=== PATIENT | female | born 1965 | race Caucasian/White ===

== ENCOUNTER 2020-09-21 06:57 | Day surgery (SDC) | payer OTHER, SELFPAY ==
[~2020-09-21] VITALS: Ht 157.5 cm; Wt 62.6 kg
[2020-09-21] MEDS ORDERED: LIDOCAINE 1% 500 MG/50 ML VIAL ONE (09:45)
[2020-09-21] MEDS ORDERED: BUPIVACAINE MPF 0.25% 10 ML VIAL INJ ONE (09:46)
[2020-09-21] MEDS ORDERED: SUGAMMADEX SODIUM 200 MG/2 ML VIAL IV ONE (09:50)
[2020-09-21] MEDS ORDERED: KETOROLAC 30 MG/ML VIAL ONE (09:50)
[2020-09-21] MEDS ORDERED: SUCCINYLCHOLINE CHLORIDE 200 MG/10 ML VIAL IVP ONE ×2 (09:50→09:52)
[2020-09-21] MEDS ORDERED: PROPOFOL 200 MG/20 ML VIAL IV ONE (09:50)
[2020-09-21] MEDS ORDERED: fentaNYL citrate 0.05 MG/ML VIAL ONE (09:50)
[2020-09-21] MEDS ORDERED: ONDANSETRON 4 MG/2 ML VIAL ONE (09:50)
[2020-09-21] MEDS ORDERED: SEVOFLURANE 250 ML BTL INH ONE (09:50)
[2020-09-21] MEDS ORDERED: ROCURONIUM 50 MG/5 ML VIAL IV ONE (09:50)
[2020-09-21] MEDS ORDERED: MIDAZOLAM 2 MG/2 ML VIAL ONE (09:50)
[2020-09-21] MEDS ORDERED: DEXAMETHASONE 4 MG/ML VIAL ONE (09:50)
[2020-09-21] MEDS ORDERED: MEPERIDINE 50 MG/ML SYR ONE (09:50)
[2020-09-21] MEDS ORDERED: diphenhydrAMINE 50 MG/ML VIAL IVP PRN (10:15)
[2020-09-21] MEDS ORDERED: HYDROmorphone 1 MG/ML AMP IVP PRN ×2 (10:15→11:00)
[2020-09-21] MEDS ORDERED: MEPERIDINE 25 MG/ML SYR IVP PRN (10:15)
[2020-09-21] MEDS ORDERED: ONDANSETRON 4 MG/2 ML VIAL IVP PRN (10:15)
[2020-09-21] MEDS ORDERED: LACTATED RINGERS 1,000 ML IV SCH (10:15)
[2020-09-21] MEDS ORDERED: MORPHINE SULFATE 2 MG/ML SYR IVP PRN (11:00)
[2020-09-21] MEDS ORDERED: ONDANSETRON 4 MG/2 ML VIAL IV PRN (11:00)
[2020-09-21] MEDS ORDERED: HYDROcodone/APAP 5/325 MG 1 TAB TAB PO PRN (11:00)
[2020-09-21] MEDS ORDERED: MORPHINE SULFATE 4 MG/ML SYR IV PRN (11:00)
[2020-09-21] MEDS ORDERED: ACETAMINOPHEN 325 MG TAB PO PRN (11:00)
== END 2020-09-21 14:00 | disposition home or self-care (01) ==
LOC: MDS 06:57 → MMU 06:58 → EDBD 12:00 → MDS 14:00
PROVIDERS: ATTEND Surgery
DX: K80.10 Calculus of gallbladder with chronic cholecystitis without obstruction (principal); E11.9 Type 2 diabetes mellitus without complications; Z79.899 Other long term (current) drug therapy
CPT/HCPCS: 36415; 47562; 71045; 81025; 82374; 86886; 86900; 86901; 87426; J0330; J0690; J1100; J1885; J2001; J2175; J2250; J2405; J2704; J3010; J3490; J7030; J7060; J7120